=== PATIENT | female | born 1990 | race Caucasian/White ===

== ENCOUNTER 2016-10-29 08:28 | Inpatient (IN) | payer OTHER ==
--- NOTE | ~2016-10-29 | HP ---
Unit #: [id number] #: [id number] Patient: MIKEY OCHOA [id number] [facility] [address] [facility]. [place], [place] [address] [id number] I MR#: [id number] NAME: MIKEY OCHOA ROOM: 13982 Age: 26 Sex: F Admission Date: 10/29/2016 : 1990 Attending Physician: Michelle Martinez M.D. HISTORY AND PHYSICAL CHIEF COMPLAINT Chest pain. HISTORY OF PRESENT ILLNESS The patient is a 26-year-old female with no significant past medical history who presented to the emergency department for evaluation of the above. The patient states that she has had a 2-3 month history of intermittent upper abdominal pain. The most recent episode was this morning around 6:30. She states that the pain woke her from sleep. It is in the upper abdomen. She describes it as "sharp." It radiates to the back and to the chest. There are no exacerbating or alleviating factors. She has had similar episodes over the past two to three months. She noticed that it is worse after eating greasy foods. She had pizza last night. She states that typically the pain lasts about 10-15 minutes and then resolves. Today the pain has persisted. In the emergency department, a CT of the abdomen and pelvis was done and showed findings concerning for acute pancreatitis. Lipase is 3230. She is being admitted to [facility] for evaluation and further treatment. PAST MEDICAL HISTORY No hospitalizations. PAST SURGICAL HISTORY Tonsillectomy. ALLERGIES No known allergies. HOME MEDICATIONS None. SOCIAL HISTORY The patient lives with her . There is no tobacco use. She reports very occasional alcohol use. 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 FAMILY HISTORY Notable for both parents having diabetes. Her father has hypertension. REVIEW OF SYSTEMS Unit #: [id number] #: [id number] Patient: MIKEY OCHOA A complete review of systems is negative except as indicated in the HPI. The patient states that she has lost about 35 pounds over the past two months. She has been trying to "eat healthy." She has been seeing her V BELT INSPECTOR, Dr. Toledo with [facility], regarding abnormal periods. She states that she had an endometrial biopsy as well as a pelvic ultrasound within the past couple of weeks. PHYSICAL EXAMINATION VITAL SIGNS: Temperature 97.3, pulse 74, respirations 17, blood pressure 134/75, oxygen saturation 100% on room air. GENERAL: The patient is a morbidly obese female who is awake and alert in no acute distress. HEENT: Head is atraumatic. Mucous membranes are moist. NECK: Supple. Trachea is midline. LUNGS: Clear to auscultation bilaterally with no increased work of breathing. HEART: Regular rate and rhythm. ABDOMEN: Obese, soft. She is tender to palpation in the epigastric area and right upper quadrant. Bowel sounds present in all four quadrants. EXTREMITIES: Nontender with no pedal edema. NEUROLOGIC: Patient is awake and alert. She follows commands. PSYCHIATRIC: Mood and affect are normal. Patient is cooperative. SKIN OF EXAMINED AREAS: Warm and dry. DIAGNOSTIC STUDIES LABORATORY: Urine test is negative. Comprehensive metabolic panel notable for AST 81, ALT 60. Lipase 3230. Troponin less than 0.05. Urinalysis notable for trace leukocyte esterase, 3+ blood, 100-200 rbc's, 2-5 wbc's, 1+ bacteria. Complete blood count notable for MCV of 81.5. IMAGING: CT of the abdomen and pelvis shows inflammatory stranding involving the pancreas concerning for acute pancreatitis. Also of note, there is a 9.8 x 8.9 cm cyst above the dome of the bladder concerning for possible adnexal cyst. Pelvic ultrasound is recommended. Right upper quadrant ultrasound shows cholelithiasis. Chest x-ray shows nothing acute. CARDIOVASCULAR: EKG shows sinus rhythm with first-degree AV block at a rate of 74 beats per minute. ASSESSMENT The patient is a 26-year-old female with: 1. Acute pancreatitis with a lipase of 3230. 2. Cholelithiasis. 3. Possible urinary tract infection. 4. Possible adnexal cyst noted on CT. The patient had a pelvic ultrasound within the past couple of weeks. There are no records at the time of this dictation. 5. Transaminitis. 6. Morbid obesity with a BMI of 61 present on admission. PLAN 1. Admit to med-surg. 2. N.p.o. 3. Normal saline at 100 mL per hour. 4. P.r.n. morphine. Unit #: [id number] #: [id number] Patient: MIKEY OCHOA 5. P.r.deidra Vallecillo. 6. Fasting lipid panel. 7. Consult [facility] regarding acute pancreatitis and cholelithiasis. 8. Blood cultures x2. 9. Urine culture and sensitivity on urine in the lab. 10. Rocephin 1 gram IV daily with first dose now pending results of urine culture. 11. Get pelvic ultrasound report from [facility]. 12. Serial cardiac enzymes. 13. Nutrition consult regarding morbid obesity. 14. SCDs for DVT prophylaxis. 15. Repeat labs in the morning. 16. Additional workup and consultants based on above. Dictated by Elizabeth Lay/estephania TD: 10/29/2016 16:37 JOB #: [id number] HISTORY AND PHYSICAL Page 1 of 1 X Michelle Martinez MD HISTORY AND PHYSICAL
--- NOTE | ~2016-10-29 | DS ---
Unit #: [id number] #: [id number] Patient: MIKEY OCHOA [id number] [address] [address] [id number] I MR#: [id number] NAME: MIKEY OCHOA ROOM: 227 Age: 26 Sex: F Admission Date: 10/29/2016 : 1990 Discharge Date: 11/02/2016 Attending Physician: Carla Oliva M.D. DISCHARGE SUMMARY CONSTRUCTION FRAMER Dr. Toledo with [place]. PRINCIPAL DIAGNOSES 1. Acute biliary pancreatitis. 2. Acute cholecystitis. 3. Large ovarian cyst, approximately 9 cm, followed by Dr. Toledo as an outpatient. 4. Irregular menses, question polycystic ovarian syndrome. 5. Morbid obesity. 6. Transaminitis. 7. Mild protein malnutrition. 8. Hepatosteatosis. ADDRESSING MACHINE OPERATOR Dr. Manriquez, general surgery. PROCEDURE Laparoscopic cholecystectomy on November 01, 2016. This occurred without complications. DIAGNOSTIC STUDIES IMAGING: Chest x-ray, October 29, 2016, which was normal. CT scan of abdomen and pelvis without contrast on October 29, 2016, with inflammatory stranding around the pancreas consistent with pancreatitis. There is a large 9.8 x 8.9 cm cystic structure above the dome of the bladder. Abdominal ultrasound on October 29, 2016, with findings of cholelithiasis and fatty infiltration of the liver. Pelvic ultrasound on October 30, 2016, with large cystic lesion in the pelvis. It is anechoic without solid component. No ovary visualized. CLINICAL HISTORY AND HOSPITAL COURSE Ms. Ochoa is a very nice, 26-year-old, female who presents to the emergency department with complaints of abdominal pain particularly after eating. In the emergency department, she underwent a CT scan of the abdomen and pelvis revealing findings of pancreatitis. Lipase was elevated at greater than 3200. She was subsequently admitted. In regards to patient's pancreatitis, she was made NPO and placed on IV fluids, antiemetics, and pain medication. Fortunately, her pancreatitis resolved relatively quickly. Right upper quadrant ultrasound was done to work up Unit #: [id number] #: [id number] Patient: MIKEY OCHOA etiology of her pancreatitis and did reveal cholelithiasis. Patient had recently lost about 35 pounds over a 2-3-week period and I suspect that her rapid weight loss led to formation of gallstones and subsequently gallstone pancreatitis. LSA was consulted and patient subsequently underwent laparoscopic cholecystectomy. Postoperatively, she has done well and will be maintained on pain meds for a short period. CT scan of the abdomen and pelvis did reveal a very large adnexal cyst. This is being worked up by Dr. Toledo, patient's primary senior engineering specialist, as an outpatient and I have asked her to follow up. She also has significantly irregular menses, which I clinically suspect is likely polycystic ovarian syndrome due to her weight. I did briefly discuss this with her, but, again, she will follow up with Dr. Toledo as an outpatient. I have encouraged her to continue with her weight loss given this will improve her overall health long-term. Patient will be discharged home later today. DISCHARGE CONDITION Stable. DISCHARGE STATUS Discharged to home. DISCHARGE MEDICATIONS Lortab 7.5/325 one to two tablets p.o. q.4 hours p.r.n. for pain, number given 30. FOLLOWUP 1. Patient will follow up with Dr. Manriquez in approximately 7-10 days in the office with subsequent staple removal. 2. Patient has a followup appointment with her primary senior engineering specialist, Dr. Toledo, at [place] on November 11 and I have encouraged her to keep this appointment. DISCHARGE INSTRUCTIONS Patient may shower at home. TIME SPENT ON DISCHARGE TODAY Thirty-three minutes. Dictated by... Carla Oliva M.D. DARRYL/dacia TD: 11/02/2016 11:44 JOB #: [id number] Unit #: [id number] #: [id number] Patient: MIKEY OCHOA DISCHARGE SUMMARY Page 1 of 1 X Carla Oliva MD DISCHARGE SUMMARY
--- NOTE | ~2016-10-29 | CR7 ---
[facility] A Service of [facility] & [facility] RADIOLOGY TEXT RESULTS PATIENT: MIKEY OCHOA LOCATION: C2A 227-01 : [birth year] UNIT #: [id number] AGE: [address]: Carla Oliva MD SEX: F ORDER DR: [id number] [facility] [address] [facility]. [place], [place] [address] [id number] I MR#: [id number] Acc #: [id number] NAME: MIKEY OCHOA : 1990 SEX: F STUDY DATE/TIME: 11/01/2016 15:42 UNIT: C2A ROOM: 227 STUDY DESCRIPTION: CR Abdomen Single AP View Attending Physician: Carla Oliva M.D. Ordering Physician: Harsh Manriquez M.D. MEDICAL IMAGING REPORT This report is preliminary unless electronic signature is present EXAM Intraoperative cholangiogram (interpretation only) HISTORY Cholecystectomy. PROCEDURE Total of 3 intraoperative images are obtained. There is injection of the common bile duct remnant. There is free filling of the common duct and flow into the duodenum. There is minimal irregularity of the distal duct. There is reflux into the pancreatic duct. Total fluoroscopy time was 2 minutes, 11 seconds. 3 images are submitted. Details of the procedure can be found in Dr. Manriquez's notes. Dictated by... Chan Schwarz M.D. THIS IS AN ELECTRONICALLY VERIFIED REPORT Chan Schwarz M.D. at 11/01/2016 5:01 PM KIERA/gunjan TD: 11/01/2016 16:50 JOB #: [id number] MEDICAL IMAGING REPORT Page 1 of 1 COPY
--- NOTE | ~2016-10-29 | A ---
[facility] Nutrition Therapy DATE: 10/31/16 Patient: MIKEY OCHOA Physician: TYRONE Address: [address] [place] [address] Room/Bed: [address] [place] [address], Zip: [place] [address] Admit Date: 10/29/16 Date of : [birth year] Height: 5 6 Weight: 280 172.36 NUTRITIONAL ASSESSMENT: REASON: Seen due to high BMI + consult re: "Eval" Admitting Dx: 26 y/o female admitted with chest/abdominal pain, found to have gallstones, CT concern for acute biliary pancreatitis PMH: Nothing significant Anthropometrics: Ht: 66", Wt: 172.4 kg, BMI: 61 (Stage III obese) Labs: Amylase 189 -> 59 (elevated), Lipase 3230 -> 147 -> 44 (WNL) Na/K WNL, Phos/Mg not checked AST/ALT WNL Lipid panel WNL Meds: NSIV @ 150 ml/hr, Morphine, Zofran prn I/O & Bowel function: LBM 10/29, denies N/V at this time Skin Integrity: No issues, trace edema BLE Assessment: Chart reviewed, events noted. Patient with gallstones, CT showed concern for biliary acute pancreatitis which is improving, large pelvic cyst found. Patient is on a low-fat diet (40-50g per day), to be NPO after midnight for possible cholecystectomy. Of note, patient is morbidly obese. RD explained rationale for low-fat diet and provided both verbal and written diet education with contact info. Patient states she has been trying to follow a healthier diet recently and has lost 35 lbs, however she was eating pizza when her GI sx were exacerbated and she came to the hospital. RD encouraged diet compliance especially if gallbladder is removed, encouraged weight loss; patient agreed. She showed good understanding and motivation to follow diet, had no further questions at this time. See recs below. Dx: Morbid obesity r/t lifestyle, diet AEB BMI 61, need for diet education. Intervention: Low-fat MNT with 5-day low-fat sample meal plan Monitoring, Evaluation and Goals: 1. Tolerance of oral diet with minimal c/o abdominal pain or N/V. 2. Improvement in amylase lab. 3. Understanding and implementation of low-fat diet education. 4. Gradual weight loss towards a healthy BMI range. [facility] Nutrition Therapy DATE: 10/31/16 Patient: MIKEY OCHOA Physician: TYRONE Address: [address] [place] [address] Room/Bed: [address] [place] [address], Zip: [place] [address] Admit Date: 10/29/16 Date of : [birth year] Height: 5 6 Weight: 280 172.36 Monitor: Per protocol, criteria to determine if above goals met Recommendations: Agree with low-fat diet. RD provided both verbal and written low-fat diet eduacation with contact info. Encourage patient compliance and gradual weight loss. RD will follow hospital course Mild nutrition risk Respectfully, Judy Tang RD, LD [employer] [facility] [employer] cc: client file
--- NOTE | ~2016-10-29 | CT2 ---
[facility] A Service of [facility] RADIOLOGY TEXT RESULTS PATIENT: MIKEY OCHOA LOCATION: [facility] 227-01 : [birth year] UNIT #: [id number] AGE: [address]: Michelle Martinez MD SEX: F ORDER DR: [id number] [facility]. [place], [place] [address] [id number] I MR#: [id number] Acc #: [id number] NAME: MIKEY OCHOA : 1990 SEX: F STUDY DATE/TIME: 10/29/2016 11:41 UNIT: [facility] ROOM: [facility] STUDY DESCRIPTION: CT Abd and Pelv W Cont Attending Physician: Michelle Martinez M.D. Ordering Physician: Neptali Crawford A.P.R.N. MEDICAL IMAGING REPORT This report is preliminary unless electronic signature is present EXAM CT of the abdomen and pelvis with contrast INDICATIONS Upper abdominal pain and nausea since this morning. COMPARISON With 02/22/[address] exam was performed with one or more of the following radiation dose reduction techniques: automatic control, adjustment of mA and/or kV according to patient size, and iterative reconstruction. FINDINGS Lung bases are clear. The liver is unremarkable. The gallbladder is unremarkable. The spleen is unremarkable. The kidneys and adrenal glands are unremarkable. There is inflammatory stranding about the pancreas consistent with acute pancreatitis. There is no evidence for any fluid collection. No evidence for bowel obstruction. PELVIS: There is a large cystic structure just superior to the bladder located in the mid pelvis which is new compared with the study in 2012 and for which I believe probably represents a very large ovarian cyst. The colon is unremarkable. The appendix is normal. The bone windows are unremarkable. IMPRESSION 1. There is inflammatory stranding around the pancreas most consistent with acute pancreatitis. There is no evidence for any abscess or fluid collection. 2. There is a large 9.8 x 8.9 cm cystic structure which is located just above the dome of the bladder and is new compared with the previous [facility] A Service of [facility] RADIOLOGY TEXT RESULTS PATIENT: MIKEY OCHOA LOCATION: C2A 227-01 : [birth year] UNIT #: [id number] AGE: [address]: Michelle Martinez MD SEX: F ORDER DR: CT scan. I believe this is probably reflecting a large adnexal cyst. This could be further evaluated with pelvic ultrasound. Dictated by... Jose Vasquez M.D. THIS IS AN ELECTRONICALLY VERIFIED REPORT Jose Vasquez M.D. at 10/30/2016 3:48 PM ARS/chayitor TD: 10/29/2016 23:00 JOB #: [id number] MEDICAL IMAGING REPORT Page 1 of 1 COPY
--- NOTE | ~2016-10-29 | EKG ---
PATIENT: MIKEY OCHOA UNIT #: [id number] Ventricular Rate: 74 BPM Atrial Rate: 74 BPM P-R Interval: 216 ms QRS Duration: 96 ms Q-T Interval: 426 ms QTC Calculation(Bezet): 472 ms P Independence: 43 degrees Calculated R Independence: 26 degrees Calculated T Independence: 27 degrees Diagnosis Line: Sinus rhythm with 1st degree A-V block Diagnosis Line: Otherwise normal ECG Diagnosis Line: Diagnosis Line: Confirmed by DAMIAN SUNSHINE MD ([id number]) on Diagnosis Line: 10/31/2016 8:35:20 AM INTERPRETING MD: BITA BRYA
--- NOTE | ~2016-10-29 | US6 ---
[facility] A Service [facility] RADIOLOGY TEXT RESULTS PATIENT: MIKEY OCHOA LOCATION: [facility] : [birth year] UNIT #: [id number] AGE: [address]: Michelle Martinez MD SEX: F ORDER DR: [id number] [facility]. [place], [place] [address] [id number] I MR#: [id number] Acc #: [id number] NAME: MIKEY OCHOA : 1990 SEX: F STUDY DATE/TIME: 10/29/2016 13:21 UNIT: [facility] ROOM: [facility] STUDY DESCRIPTION: US Abdominal Limited Attending Physician: Michelle Martinez M.D. Ordering Physician: Neptali Crawford A.P.R.N. MEDICAL IMAGING REPORT This report is preliminary unless electronic signature is present EXAM Right upper quadrant ultrasound. INDICATION Epigastric pain and nausea for 2 months. TECHNIQUE Wilson-scale imaging of the right upper quadrant structures was performed and compared with CT scan of the abdomen and pelvis from the same day. FINDINGS There is increased echogenicity of the liver with increased beam attenuation consistent with fatty infiltration. Gallbladder demonstrates shadowing gallstones but is, otherwise, within normal limits. No pericholecystic fluid or wall thickening. Common duct is within normal limits. Pancreas poorly visualized due to overlying bowel gas. Right kidney within normal limits. IMPRESSION 1. Cholelithiasis. 2. Fatty infiltration of the liver. Dictated by... Jose Vasquez M.D. THIS IS AN ELECTRONICALLY VERIFIED REPORT Jose Vasquez M.D. at 10/30/2016 3:49 PM HANNY/evin TD: 10/30/2016 00:24 [facility] A Service [facility] RADIOLOGY TEXT RESULTS PATIENT: MIKEY OCHOA LOCATION: [facility] : [birth year] UNIT #: [id number] AGE: [address]: Michelle Martinez MD SEX: F ORDER DR: JOSSUE #: [id number] MEDICAL IMAGING REPORT Page 1 of 1 COPY
--- NOTE | ~2016-10-29 | CR72 ---
[facility] A Service of [facility] & [facility] RADIOLOGY TEXT RESULTS PATIENT: MIKEY OCHOA LOCATION: [facility] 227-01 : [birth year] UNIT #: [id number] AGE: [address]: Michelle Martinez MD SEX: F ORDER DR: [id number] [id number] [facility]. [place], [place] [address] [id number] I MR#: [id number] Acc #: [id number] NAME: MIKEY OCHOA : 1990 SEX: F STUDY DATE/TIME: 10/29/2016 9:12 UNIT: [facility] ROOM: [facility] STUDY DESCRIPTION: CR Chest Single View Portable Attending Physician: Michelle Martinez M.D. Ordering Physician: Neptali Crawford A.P.R.N. MEDICAL IMAGING REPORT This report is preliminary unless electronic signature is present EXAM Portable chest. INDICATIONS Chest pain today. COMPARISON 08/09/2014 FINDINGS Low-volume inspiration. No acute-appearing infiltrate. Heart size stable. Visualized osseous structures are unremarkable. IMPRESSION No active disease. Dictated by... Jose Vasquez M.D. THIS IS AN ELECTRONICALLY VERIFIED REPORT Jose Vasquez M.D. at 10/30/2016 3:47 PM HANNY/evin TD: 10/29/2016 20:30 JOB #: [id number] MEDICAL IMAGING REPORT Page 1 of 1 COPY
--- NOTE | ~2016-10-29 | US98 ---
[facility] A Service of [facility] & [facility] RADIOLOGY TEXT RESULTS PATIENT: MIKEY OCHOA LOCATION: C2A 227-01 : [birth year] UNIT #: [id number] AGE: [address]: Michelle Martinez MD SEX: F ORDER DR: [id number] [facility] [address] [facility]. [place], [place] [address] [id number] I MR#: [id number] Acc #: [id number] NAME: MIKEY OCHOA : 1990 SEX: F STUDY DATE/TIME: 10/30/2016 8:43 UNIT: C2A ROOM: [facility] STUDY DESCRIPTION: US Pelvic Non-OB Complete Attending Physician: Michelle Martinez M.D. Ordering Physician: Abelino Shoemaker M.D. MEDICAL IMAGING REPORT This report is preliminary unless electronic signature is present EXAM Pelvic ultrasound INDICATION Adnexal mass seen on CT scan. TECHNIQUE Transabdominal and transvaginal sonography of the female pelvis was performed. Comparison is made with CT of the abdomen and pelvis from yesterday. FINDINGS The uterus measures 3.4 cm x 3.2 cm x 7.1 cm. Endometrial stripe thickness measures about 1 cm in greatest dimension. No evidence for uterine mass. Neither ovary is visualized. There is a large anechoic cystic structure located just superior to the dome of the bladder. There is no solid component in it and there is no associated color Doppler flow. It measures about 10 cm in greatest dimension. The appearance is similar to the appearance on CT. The etiology is uncertain. I cannot say for sure whether it is an ovarian cyst as neither ovary is visualized but it is some sort of cyst within the pelvis and I suspect it is probably a large ovarian cyst. At this point the recommendation would be a followup pelvic ultrasound and 8 weeks to evaluate this lesion to see if it has decreased in size. Alternatively an MRI of the pelvis could be performed if the patient is able to undergo MR imaging. IMPRESSION Redemonstrated is a large cystic lesion in the pelvis just above the dome of the bladder. The lesion is purely cystic and is anechoic and there is no solid component or color Doppler flow. Neither ovary however is visualized on transabdominal or transvaginal sonography and the lesion is technically indeterminate as far as its etiology although I suspect it is STS. [facility] A Service of [facility] RADIOLOGY TEXT RESULTS PATIENT: MIKEY OCHOA LOCATION: C2A 227-01 : [birth year] UNIT #: [id number] AGE: [address]: Michelle Martinez MD SEX: F ORDER DR: probably a large ovarian cyst. At this point further imaging evaluation could be performed with a repeat pelvic ultrasound in about 8 weeks to ensure that it is stable or decreasing in size or alternatively an MRI of the pelvis could be performed if the patient is able to undergo MRI. Dictated by... Jose Vasquez M.D. THIS IS AN ELECTRONICALLY VERIFIED REPORT Jose Vasquez M.D. at 10/31/2016 2:20 PM HANNY/gayatri TD: 10/30/2016 23:28 JOB #: [id number] MEDICAL IMAGING REPORT Page 1 of 1 COPY
--- NOTE | ~2016-10-29 | OR ---
Unit #: [id number] #: [id number] Patient: MIKEY OCHOA [id number] [address] [address] [id number] Tito MR#: [id number] NAME: MIKEY OCHOA ROOM: 227 Date of Procedure: 11/01/2016 Admission Date: 10/29/2016 Surgeon: Harsh Manriquez M.D. : 1990 Attending Physician: Carla Oliva M.D. OPERATIVE REPORT PREOPERATIVE DIAGNOSIS Gallstone pancreatitis. POSTOPERATIVE DIAGNOSES Gallstone pancreatitis and large left ovarian cyst. PROCEDURES PERFORMED Diagnostic laparoscopy, laparoscopic cholecystectomy with intraoperative cholangiogram. ANESTHESIA General endotracheal anesthesia. ESTIMATED BLOOD LOSS Less than 10 mL. INDICATIONS FOR PROCEDURE A 26-year-old female, who presented to the hospital with abdominal pain and was found by laboratory and CT scan to have gallstone pancreatitis. Ultrasound of the gallbladder confirmed cholelithiasis. She also was noted to have a 10 cm cystic mass in the pelvis. DESCRIPTION OF PROCEDURE The patient was transported from her hospital room to the operating room, and after induction of general endotracheal anesthesia, a 1 cm supraumbilical incision was made. I dissected down through a very generous fatty layer and identified the fascia, grasped and elevated the fascia and placed a Veress needle and created a pneumoperitoneum. A 5-mm trocar was placed followed by the laparoscope under direct vision. The epigastric and lateral ports were placed. Gallbladder was grasped and elevated. [place] of [place] was dissected out clearly identifying the cystic duct, gallbladder, and cystic duct-common duct junction. The cystic duct was not particularly enlarged. I swept it up toward the gallbladder and then placed a clip on the cystic duct as it entered the gallbladder. An intraoperative cholangiogram was then performed and it was normal. After completion of the cholangiogram, three clips were placed distal to the incision in the cystic duct and the cystic duct was completely divided. Posteriorly, the cystic artery was doubly clipped proximally and distally and divided. The gallbladder was then dissected out of the liver bed using cautery dissection and once it was freed up from its hepatic attachments, it was brought out through the epigastric port. There was good hemostasis. The clips were well positioned. There Unit #: [id number] #: [id number] Patient: OCHOA,MIKEY was no spillage of bile or stones. The patient was then placed in steep Trendelenburg position. The camera was pointed down in the pelvis and the large cystic mass was clearly evident. I have used a grasper to identify the right ovary which appeared normal. The cyst seemed to be coming from the left ovary and at the adnexa. It was benign-appearing, but was very large. No other findings were noted. The epigastric fascial defect was closed with the neoClose device, the closure was airtight. I then reduced pneumoperitoneum as I removed the laparoscope and trocars. 0.5% Marcaine with epinephrine was infiltrated in each trocar site. Skin was closed with sterile skin sabrina. Dry sterile bandages were placed. Sponges and needle counts were correct x3. The patient was transported to recovery in stable condition, will be readmitted to her hospital room postoperatively. Findings and postoperative instructions were discussed with her family. Dictated by... Elizabeth Hernandez/lam TD: 11/02/2016 01:36 JOB #: [id number] OPERATIVE REPORT Page 1 of 1 X Harsh Manriquez MD PROCEDURE OPERATIVE NOTE
[~2016-10-29 08:28] MED LIST: BENTYL10 MG PO; FLEXERIL10 M1 PO; MOTRIN600 M1 PO; ZANTAC150 M1 PO; ZOFRANODT PO
[2016-10-29 09:39] LABS: URINE SOURCE CLEAN CATCH
[2016-10-29 09:45] LABS: URINE APPEARANCE CLEAR; URINE BILIRUBIN NEG (NEG); URINE BLOOD 3+ (NEG); URINE COLOR YELLOW; URINE GLUCOSE NEG (NEG); URINE KETONE NEG (NEG); URINE LEUKOCYTE ESTERASE TRACE (NEG); URINE NITRATE NEG (NEG); URINE PROTEIN NEG (NEG); URINE SPECIFIC GRAVITY 1.014 (1.003-1.035)
[2016-10-29 09:45] LABS: BASOPHIL% 0.5 % (0-2.5); EOSINOPHIL% 0.4 % (0.0-7.0); HEMATOCRIT 44.7 % (35.0-45.0); HEMOGLOBIN 14.4 gm/dL (12.0-16.0); LYMPHOCYTE# 1.6 X10e3 (1.0-3.5); LYMPHOCYTE% 16.9 % (17.0-45.0); MEAN CELL VOLUME 81.5 FL (83-96); MEAN CORPUSCULAR HEMOGLOBIN 26.2 PG (28-34); MEAN CORPUSCULAR HGB CONC 32.2 g/dL (30-36); MEAN PLATELET VOLUME 8.9 FL (6.5-11.5); MONOCYTE# 0.6 X10e3 (0-1.0); MONOCYTE% 6.4 % (3.0-12.0); NEUTROPHIL# 7.3 X10e3 (1.5-7.1); NEUTROPHIL% 75.8 % (40-75); PLATELET COUNT 264 X10e3 (140-420); RED BLOOD COUNT 5.49 X10e (3.90-5.30); RED CELL DISTRIBUTION WIDTH 14.9 % (11.0-15.5); WHITE BLOOD COUNT 9.7 X10e3 (4.0-10.5)
[2016-10-29 09:46] LABS: DIFF IND NO
[2016-10-29 09:48] LABS: CULTURE INDICATED? YES; URBCS1 AUWI 100-200 /[HPF] (0-2); URINE BACTERIA AUWI 1+ (NEGATIVE); URINE SQUAMOUS EPITHELIAL CELL OCC /[HPF]
[2016-10-29 09:54] LABS: POC - CKMB <1.0 ng/mL (0.0-7.9); POC - TROPONIN <0.05 ng/mL (<=0.05)
[2016-10-29 11:04] LABS: ALBUMIN SERUM 3.6 g/dL (3.5-5.0); BILIRUBIN,TOTAL 0.9 mg/dL (0.2-2.0); BUN/CREATININE RATIO 22.85; CALCIUM SERUM 8.8 mg/dL (8.4-10.2); CREATININE SERUM 0.7 mg/dL (0.6-1.4); GLOM FILT RATE Estimated 121.3 mL/min (>60); POTASSIUM 3.8 mmol/L (3.5-5.1); PROTEIN TOTAL SERUM 6.9 g/dL (6.0-8.3)
[2016-10-29] MEDS ORDERED: NO MEDICATIONS (12:31)
[2016-10-29 17:21] LABS: %MB 0.8 % (0.0-4.0); MB 0.7 ng/ml
[2016-10-30 00:14] LABS: %MB 0.7 % (0.0-4.0); MB 0.6 ng/ml
[2016-10-30 07:39] LABS: BASOPHIL% 0.3 % (0-2.5); EOSINOPHIL# 0.1 X10e3 (0-0.7); EOSINOPHIL% 0.6 % (0.0-7.0); HEMOGLOBIN 13.4 gm/dL (12.0-16.0); LYMPHOCYTE% 22.4 % (17.0-45.0); MEAN CELL VOLUME 82.6 FL (83-96); MEAN CORPUSCULAR HEMOGLOBIN 26.4 PG (28-34); MEAN CORPUSCULAR HGB CONC 31.9 g/dL (30-36); MEAN PLATELET VOLUME 8.9 FL (6.5-11.5); MONOCYTE# 0.4 X10e3 (0-1.0); MONOCYTE% 4.3 % (3.0-12.0); NEUTROPHIL# 6.3 X10e3 (1.5-7.1); NEUTROPHIL% 72.4 % (40-75); PLATELET COUNT 248 X10e3 (140-420); RED BLOOD COUNT 5.08 X10e (3.90-5.30); RED CELL DISTRIBUTION WIDTH 14.8 % (11.0-15.5); WHITE BLOOD COUNT 8.7 X10e3 (4.0-10.5)
[2016-10-30 07:44] LABS: DIFF IND NO
[2016-10-30 09:04] LABS: ALBUMIN SERUM 3.2 g/dL (3.5-5.0); BILIRUBIN,TOTAL 0.6 mg/dL (0.2-2.0); BUN/CREATININE RATIO 15.71; CALCIUM SERUM 8.3 mg/dL (8.4-10.2); CREATININE SERUM 0.7 mg/dL (0.6-1.4); GLOM FILT RATE Estimated 121.3 mL/min (>60); PROTEIN TOTAL SERUM 5.9 g/dL (6.0-8.3)
[2016-10-31 05:00] LABS: HEMATOCRIT 40.4 % (35.0-45.0); MEAN CELL VOLUME 81.6 FL (83-96); MEAN CORPUSCULAR HEMOGLOBIN 26.3 PG (28-34); MEAN CORPUSCULAR HGB CONC 32.2 g/dL (30-36); MEAN PLATELET VOLUME 8.5 FL (6.5-11.5); RED BLOOD COUNT 4.94 X10e (3.90-5.30); RED CELL DISTRIBUTION WIDTH 14.3 % (11.0-15.5); WHITE BLOOD COUNT 8.5 X10e3 (4.0-10.5)
[2016-10-31 06:27] LABS: ALBUMIN SERUM 3.1 g/dL (3.5-5.0); BILIRUBIN,TOTAL 0.6 mg/dL (0.2-2.0); BUN/CREATININE RATIO 13.33; CALCIUM SERUM 8.4 mg/dL (8.4-10.2); CREATININE SERUM 0.6 mg/dL (0.6-1.4); GLOM FILT RATE Estimated 127.6 mL/min (>60); POTASSIUM 3.9 mmol/L (3.5-5.1); PROTEIN TOTAL SERUM 5.8 g/dL (6.0-8.3)
[2016-11-01 05:15] LABS: HEMATOCRIT 43.1 % (35.0-45.0); HEMOGLOBIN 13.9 gm/dL (12.0-16.0); MEAN CELL VOLUME 81.4 FL (83-96); MEAN CORPUSCULAR HEMOGLOBIN 26.3 PG (28-34); MEAN CORPUSCULAR HGB CONC 32.3 g/dL (30-36); MEAN PLATELET VOLUME 8.7 FL (6.5-11.5); RED BLOOD COUNT 5.3 X10e (3.90-5.30); WHITE BLOOD COUNT 9.3 X10e3 (4.0-10.5)
[2016-11-01 06:28] LABS: ALBUMIN SERUM 3.3 g/dL (3.5-5.0); BILIRUBIN,TOTAL 0.6 mg/dL (0.2-2.0); CALCIUM SERUM 8.8 mg/dL (8.4-10.2); CREATININE SERUM 0.6 mg/dL (0.6-1.4); GLOM FILT RATE Estimated 127.6 mL/min (>60); POTASSIUM 3.9 mmol/L (3.5-5.1); PROTEIN TOTAL SERUM 6.2 g/dL (6.0-8.3)
[2016-11-02 07:55] LABS: HEMATOCRIT 41.6 % (35.0-45.0); HEMOGLOBIN 13.3 gm/dL (12.0-16.0); MEAN CELL VOLUME 81.8 FL (83-96); MEAN CORPUSCULAR HEMOGLOBIN 26.1 PG (28-34); MEAN CORPUSCULAR HGB CONC 31.9 g/dL (30-36); MEAN PLATELET VOLUME 8.7 FL (6.5-11.5); RED BLOOD COUNT 5.09 X10e (3.90-5.30); RED CELL DISTRIBUTION WIDTH 14.6 % (11.0-15.5); WHITE BLOOD COUNT 11.1 X10e3 (4.0-10.5)
[2016-11-02 10:08] LABS: ALBUMIN SERUM 3.3 g/dL (3.5-5.0); BILIRUBIN,TOTAL 0.7 mg/dL (0.2-2.0); CALCIUM SERUM 8.8 mg/dL (8.4-10.2); CREATININE SERUM 0.6 mg/dL (0.6-1.4); GLOM FILT RATE Estimated 127.6 mL/min (>60); POTASSIUM 3.8 mmol/L (3.5-5.1); PROTEIN TOTAL SERUM 6.2 g/dL (6.0-8.3)
[2016-11-02] MEDS ORDERED: LORTAB 7.5-3251 EACH PO (11:20)
== END 2016-11-02 13:38 | disposition home or self-care (01) | DRG 418 ==
LOC: CED 08:28 → CEDOF 15:40 → C2A 15:40 → CED 15:52 → CEDOF 15:52 → C2A 16:52 → CEDOF 16:52 → C2A 11-01 09:29
PROVIDERS: Family Medicine; Nurse Practitioner; Specialist; Surgery
PROC: BF00YZZ Plain Radiography of Bile Ducts using Other Contrast (ICD-10-PCS; 2016-11-01)
PROC: 0FT44ZZ Resection of Gallbladder, Percutaneous Endoscopic Approach (ICD-10-PCS; principal; 2016-11-01 10:00)
DX: K85.10 Biliary acute pancreatitis without necrosis or infection (principal); K80.00 Calculus of gallbladder with acute cholecystitis without obstruction; K76.0 Fatty (change of) liver, not elsewhere classified; Z68.44 Body mass index [BMI] 60.0-69.9, adult; E44.1 Mild protein-calorie malnutrition; E28.2 Polycystic ovarian syndrome; E66.01 Morbid (severe) obesity due to excess calories; R74.0 Nonspecific elevation of levels of transaminase and lactic acid dehydrogenase [LDH]; F32.9 Major depressive disorder, single episode, unspecified; F41.9 Anxiety disorder, unspecified
CPT/HCPCS: 36415; 71010; 74000; 74177; 76000; 76705; 76830; 76856; 80053; 80061; 81003; 82150; 82550; 82553; 83615; 83690; 84484; 84703; 85025; 85027; 87040; 87086; 88304; 93005; 96361; 96374; 96375; 99285; J0330; J0696; J1650; J2250; J2270; J2405; J2550; J2710; J3010; Q9967

== ENCOUNTER → 2017-02-13 | Outpatient (CLI) | payer OTHER ==
[~2017-02-13] MED LIST changes: +LORTAB 7.5-3251 EACH PO; +NO MEDICATIONS
== END | disposition home or self-care (01) ==
LOC: CECH 14:15
DX: E66.9 Obesity, unspecified (principal); I34.0 Nonrheumatic mitral (valve) insufficiency; I36.1 Nonrheumatic tricuspid (valve) insufficiency; R94.31 Abnormal electrocardiogram [ECG] [EKG]
CPT/HCPCS: 93306